=== PATIENT | female | born 1945 | race Caucasian/White ===

== ENCOUNTER 2017-11-18 19:19 | Emergency (ER) | payer MEDICARE, OTHER ==
[~2017-11-18 19:19] MED LIST: Sodium Chloride 0.9% 1,000 ML BAG ONE; Sodium Chloride 0.9% 500 ML BAG ONE
[2017-11-18] MEDS ORDERED: Ondansetron HCl/PF 4 MG/2 ML Vial ONE (20:21)
--- NOTE | 2017-11-18 20:41 | RAD ---
CHEST ONE VIEW ABDOMEN TWO VIEWS 11/18/17 HISTORY: 72-year-old female with abdominal pain. Heart size is within normal limits. There are scattered linear and interstitial and reticulonodular p arenchymal changes noted bilaterally consistent with some stable chronic lung change. No free intrape ritoneal air. There are a few air fluid levels within nondilated large and small bowel, nonspecific. No evidence for overt obstruction. No calculus or free air. IMPRESSION: A few scattered nonspecific air fluid levels in large and small bowel without evidence for overt obst ruction or free air. Stable chronic lung changes. POS: [facility]
[2017-11-18 20:45] LABS: ALT (SGPT) 20 U/L (8-55); AST (SGOT) 19 U/L (5-34); Albumin 3.7 g/dL (3.4-4.8); Alkaline Phosphatase 51 U/L (40-150); Anion Gap 16 mmol/L (10-20); BUN (Urea Nitrogen) 13 mg/dL (9.8-20.1); Bilirubin, Total 0.5 mg/dL (0.2-1.2); Calc. Creatinine Clearance 0 mL/min (70-130); Calcium 8.8 mg/dL (7.8-10.44); Carbon Dioxide 22 mmol/L (23-31); Chloride 106 mmol/L (98-107); Estimated GFR-MDRD Greater than 90; Glucose 130 mg/dL (83-110); Potassium 3.6 mmol/L (3.5-5.1); Protein, Total 6.7 g/dL (6.0-8.3); Sodium 140 mmol/L (136-145)
[2017-11-18 20:51] LABS: Hemoglobin 13.9 g/dL (12.0-16.0); Mean Corpuscular HGB CONC 32.8 g/dL (32.0-36.0); Mean Corpuscular Hemoglobin 31.7 pg (27.0-31.0); Mean Corpuscular Volume 96.6 fl (81.0-99.0); Mean Platelet Volume 6.5 fL (7.4-10.4); Platelet Count 282 thou/uL (130-400); RBC Distribution Width 12.4 % (11.5-14.5); Red Blood Cell (RBC) Count 4.38 mill/uL (4.20-5.40); White Blood Cell (WBC) Count 10.2 thou/uL (4.8-10.8)
[2017-11-18 20:52] LABS: Band 1 % (5-11); Eosinophils 1 % (0-10); Lymphocytes 8 % (21-51); MDiff Complete? YES; Monocytes 2 % (0-10); Neutrophil 88 % (42-75); PLT Morphology Comment Appears Adequate; RBC Morphology Normal
[2017-11-18] MEDS ORDERED: Promethazine HCl 25 MG/ML VIAL ONE (21:23)
[2017-11-18] MEDS ORDERED: metroNIDAZOLE 250 MG TAB ONE (22:08)
== END 2017-11-18 22:13 | disposition home or self-care (01) ==
LOC: MADERS 19:19
DX: E86.0 Dehydration (principal); K52.9 Noninfective gastroenteritis and colitis, unspecified; E03.9 Hypothyroidism, unspecified; Z79.82 Long term (current) use of aspirin; Z79.899 Other long term (current) drug therapy
CPT/HCPCS: 74022; 80053; 82150; 85025; 86140; 96361; 96365; 96375; J2405; J2550; J7050

== ENCOUNTER 2019-04-09 15:19 | Outpatient (CLI) | payer MEDICARE, OTHER ==
--- NOTE | 2019-04-09 15:36 | RAD ---
CHEST PA AND LATERAL VIEWS: HISTORY: Bronchiectasis. COMPARISON: 11/18/2017 FINDINGS: The heart size is normal. The lungs are expanded with chronic parenchymal changes. No lobar consolid ation, pneumothoraces or pleural effusions are seen. There is a questionable 2.5 cm mass in the left infrahilar lung, which was not seen on the previous s tudy. Further evaluation with CT scan is recommended. CODE T POS: [facility]
== END 2019-04-09 15:20 | disposition home or self-care (01) ==
LOC: MADRAD 15:19
PROVIDERS: ATTEND Family Medicine
DX: J47.9 Bronchiectasis, uncomplicated (principal)
CPT/HCPCS: 71046

== ENCOUNTER 2019-04-16 09:45 | Outpatient (CLI) | payer MEDICARE ==
--- NOTE | 2019-04-16 11:22 | CT ---
CT chest with IV contrast HISTORY: Lung mass. Abnormal radiograph. Comparison: 06/06/2015. FINDINGS: Left lung is well inflated with minimal peripheral scarring, most notably at the left anter ior costal cardiac angle. No mass or other abnormality are demonstrated to reliably account for the area of concern on recent radiograph. Parenchymal scarring and retraction at the right anterior lung base and peripheral widespread nodular ity of the right lower lobe are unchanged from the previous exam. The cavitary lesion at the posterior aspect of the superior segment right lower lobe from the previous study has resolved. No ne w parenchymal lung mass. No pleural fluid, mediastinal adenopathy, or pneumothorax. IMPRESSION: Pulmonary hyperinflation, extensive scarring throughout the right lung, and other finding s are stable. No left lung abnormalities are demonstrated. The density on the recent radiograph may be related to parenchymal scarring at the anterior aspect of the left upper lobe. No further follow-u p is needed on the basis of this exam.
== END 2019-04-16 09:46 | disposition home or self-care (01) ==
LOC: MADCT 09:45
PROVIDERS: ATTEND Family Medicine
DX: R91.8 Other nonspecific abnormal finding of lung field (principal); J98.4 Other disorders of lung
CPT/HCPCS: 71260

== ENCOUNTER 2022-10-01 09:26 | Inpatient (IN) | payer MEDICARE ==
[2022-10-01] MEDS ORDERED: GUAIFENESIN SF SOLN 200 MG/10 ML UDCUP PO PRN (16:35)
[2022-10-01] MEDS ORDERED: Cyclobenzaprine 10 MG TAB PO PRN (16:59)
[2022-10-01] MEDS ORDERED: Acetaminophen 500 MG TAB ONE (17:13)
[2022-10-01] MEDS: Acetaminophen 325 MG TAB PO SCH ×2 (17:44→22:59)
[2022-10-01 17:54] VITALS: BMI 19.1
[2022-10-01] MEDS ORDERED: Acetaminophen 325 MG TAB PO SCH (18:00)
[2022-10-01] MEDS: Aspirin 81 mg Enteric Coated Tablet PO SCH (20:00)
[2022-10-01] MEDS: traMADol HCl 50 MG TAB PO PRN (22:58)
[2022-10-02 05:15] LABS: #Basophils 0.1 thou/uL (0.0-0.2); #Eosinphils 0.7 thou/uL (0.0-0.7); #Lymphocytes 1.6 thou/uL (1.20-3.40); #Monocytes 0.6 thou/uL (0.11-0.59); #Neutrophils 4.1 thou/uL (1.40-6.50); %Basophils 1.3 % (0.0-1.0); %Eosinophils 9.6 % (0.0-10.0); %Lymphocytes 22.7 % (21.0-51.0); %Monocytes 7.8 % (0.0-10.0); %Neutrophils 58.5 % (42.0-75.0); Hemoglobin 10.3 g/dL (12.0-16.0); Mean Corpuscular HGB CONC 34.1 g/dL (32.0-36.0); Mean Corpuscular Hemoglobin 31.7 pg (27.0-31.0); Mean Platelet Volume 6.5 fL (7.4-10.4); Platelet Count 306 thou/uL (130-400); RBC Distribution Width 11.5 % (11.5-14.5); Red Blood Cell (RBC) Count 3.24 mill/uL (4.20-5.40)
[2022-10-02] MEDS: Thyroid 30 MG TAB PO SCH (05:29)
[2022-10-02 05:35] LABS: ALT (SGPT) 30 U/L (8-55); AST (SGOT) 59 U/L (5-34); Albumin 2.8 g/dL (3.4-4.8); Alkaline Phosphatase 61 U/L (40-110); Anion Gap 11 mmol/L (10-20); BUN (Urea Nitrogen) 8 mg/dL (9.8-20.1); Bilirubin, Total 0.5 mg/dL (0.2-1.2); Calc. Creatinine Clearance 64 mL/min (70-130); Calcium 8.4 mg/dL (7.8-10.44); Carbon Dioxide 26 mmol/L (23-31); Chloride 106 mmol/L (98-107); Estimated GFR 95; Globulin 2.5 g/dL (2.4-3.5); Glucose 98 mg/dL (83-110); Potassium 4.1 mmol/L (3.5-5.1); Protein, Total 5.3 g/dL (5.8-8.1); Sodium 139 mmol/L (136-145)
[2022-10-02] MEDS: traMADol HCl 50 MG TAB PO PRN ×3 (06:08→23:02)
[2022-10-02] MEDS: Acetaminophen 325 MG TAB PO SCH ×5 (06:10→23:06)
[2022-10-02] MEDS ORDERED: Cholecalciferol 1,000 UNITS (25 MCG) TAB PO SCH (09:00)
[2022-10-02] MEDS: Cyanocobalamin (Vitamin B-12) 1,000 MCG TAB PO SCH (11:33)
[2022-10-02] MEDS: Multivit, Therapeutic 1 TAB PO SCH (11:33)
[2022-10-02] MEDS: CRANBERRY 400 MG PO SCH (11:33)
[2022-10-02] MEDS: Ondansetron ODT 4 MG TAB PO PRN ×2 (12:16→22:55)
[2022-10-02] MEDS: Aspirin 81 mg Enteric Coated Tablet PO SCH ×3 (12:53→21:05)
[2022-10-03] MEDS: Acetaminophen 325 MG TAB PO SCH ×4 (06:31→17:56)
[2022-10-03] MEDS: Thyroid 30 MG TAB PO SCH (06:31)
[2022-10-03] MEDS: Cyanocobalamin (Vitamin B-12) 1,000 MCG TAB PO SCH (08:20)
[2022-10-03] MEDS: Aspirin 81 mg Enteric Coated Tablet PO SCH ×2 (08:21→20:57)
[2022-10-03] MEDS: Multivit, Therapeutic 1 TAB PO SCH (08:21)
[2022-10-03] MEDS: CRANBERRY 400 MG PO SCH (08:23)
[2022-10-03] MEDS: Polyethylene Glycol 3350 17 GM Packet PO PRN (08:34)
[2022-10-03] MEDS: GUAIFENESIN 400 MG PO PRN (17:30)
[2022-10-04] MEDS: traMADol HCl 50 MG TAB PO PRN ×2 (00:17→07:01)
[2022-10-04] MEDS: Acetaminophen 325 MG TAB PO SCH ×5 (00:21→17:23)
[2022-10-04] MEDS: Thyroid 30 MG TAB PO SCH (06:15)
[2022-10-04] MEDS: Aspirin 81 mg Enteric Coated Tablet PO SCH ×2 (08:16→19:57)
[2022-10-04] MEDS: Cyanocobalamin (Vitamin B-12) 1,000 MCG TAB PO SCH (08:16)
[2022-10-04] MEDS: Multivit, Therapeutic 1 TAB PO SCH (08:17)
[2022-10-04] MEDS: PREBIOTIC FIBER PO PRN (08:18)
[2022-10-04] MEDS: Polyethylene Glycol 3350 17 GM Packet PO PRN (17:23)
[2022-10-05] MEDS: Acetaminophen 325 MG TAB PO SCH ×5 (00:46→23:16)
[2022-10-05] MEDS: Thyroid 30 MG TAB PO SCH (05:24)
[2022-10-05] MEDS: Multivit, Therapeutic 1 TAB PO SCH (07:58)
[2022-10-05] MEDS: traMADol HCl 50 MG TAB PO PRN (08:05)
[2022-10-05] MEDS: Aspirin 81 mg Enteric Coated Tablet PO SCH ×2 (08:05→20:42)
[2022-10-05] MEDS: Cyanocobalamin (Vitamin B-12) 1,000 MCG TAB PO SCH (08:06)
[2022-10-05] MEDS: PREBIOTIC FIBER PO PRN (08:07)
[2022-10-06] MEDS: Thyroid 30 MG TAB PO SCH (05:49)
[2022-10-06] MEDS: Acetaminophen 325 MG TAB PO SCH ×3 (05:49→18:30)
[2022-10-06] MEDS: Aspirin 81 mg Enteric Coated Tablet PO SCH ×2 (08:01→20:44)
[2022-10-06] MEDS: traMADol HCl 50 MG TAB PO PRN (08:01)
[2022-10-06] MEDS: Multivit, Therapeutic 1 TAB PO SCH (08:02)
[2022-10-06] MEDS: Cyanocobalamin (Vitamin B-12) 1,000 MCG TAB PO SCH (08:03)
[2022-10-06] MEDS: PREBIOTIC FIBER PO PRN (08:07)
[2022-10-06] MEDS: Polyethylene Glycol 3350 17 GM Packet PO PRN (17:59)
[2022-10-06] MEDS: Ondansetron ODT 4 MG TAB PO PRN (17:59)
[2022-10-06] MEDS ORDERED: Bisacodyl 10 MG SUPP PR PRN (18:06)
[2022-10-06] MEDS ORDERED: Polyethylene Glycol 3350 17 GM Packet PO SCH (18:15)
[2022-10-07] MEDS: Acetaminophen 325 MG TAB PO SCH ×5 (00:39→23:18)
[2022-10-07] MEDS: Thyroid 30 MG TAB PO SCH (05:18)
[2022-10-07] MEDS: traMADol HCl 50 MG TAB PO PRN (06:08)
[2022-10-07] MEDS: Multivit, Therapeutic 1 TAB PO SCH (08:20)
[2022-10-07] MEDS: Aspirin 81 mg Enteric Coated Tablet PO SCH ×2 (08:24→20:27)
[2022-10-07] MEDS: Polyethylene Glycol 3350 17 GM Packet PO SCH (08:24)
[2022-10-07] MEDS: Cyanocobalamin (Vitamin B-12) 1,000 MCG TAB PO SCH (08:24)
[2022-10-07] MEDS: GUAIFENESIN 400 MG PO PRN (15:00)
[2022-10-08] MEDS: traMADol HCl 50 MG TAB PO PRN (05:26)
[2022-10-08] MEDS: Thyroid 30 MG TAB PO SCH (05:26)
[2022-10-08] MEDS: Acetaminophen 325 MG TAB PO SCH ×3 (05:27→18:00)
[2022-10-08] MEDS: Aspirin 81 mg Enteric Coated Tablet PO SCH ×2 (08:06→20:45)
[2022-10-08] MEDS: Polyethylene Glycol 3350 17 GM Packet PO SCH (08:06)
[2022-10-08] MEDS: Multivit, Therapeutic 1 TAB PO SCH (08:06)
[2022-10-08] MEDS: Cyanocobalamin (Vitamin B-12) 1,000 MCG TAB PO SCH (08:06)
[2022-10-09] MEDS: Acetaminophen 325 MG TAB PO SCH ×5 (00:05→17:37)
[2022-10-09] MEDS: Thyroid 30 MG TAB PO SCH (05:42)
[2022-10-09] MEDS: Cyanocobalamin (Vitamin B-12) 1,000 MCG TAB PO SCH (09:06)
[2022-10-09] MEDS: Multivit, Therapeutic 1 TAB PO SCH (09:07)
[2022-10-09] MEDS: Aspirin 81 mg Enteric Coated Tablet PO SCH ×2 (09:07→20:32)
[2022-10-09] MEDS: Polyethylene Glycol 3350 17 GM Packet PO SCH (09:07)
[2022-10-10] MEDS: Acetaminophen 325 MG TAB PO SCH ×7 (00:54→23:52)
[2022-10-10] MEDS: Thyroid 30 MG TAB PO SCH (05:24)
[2022-10-10] MEDS: Multivit, Therapeutic 1 TAB PO SCH (09:33)
[2022-10-10] MEDS: Cyanocobalamin (Vitamin B-12) 1,000 MCG TAB PO SCH (09:33)
[2022-10-10] MEDS: Aspirin 81 mg Enteric Coated Tablet PO SCH ×2 (09:33→20:59)
[2022-10-10] MEDS: Polyethylene Glycol 3350 17 GM Packet PO SCH (09:35)
[2022-10-11] MEDS: Thyroid 30 MG TAB PO SCH (05:30)
[2022-10-11] MEDS: Acetaminophen 325 MG TAB PO SCH ×4 (05:30→23:49)
[2022-10-11] MEDS: traMADol HCl 50 MG TAB PO PRN (05:30)
[2022-10-11] MEDS: Polyethylene Glycol 3350 17 GM Packet PO SCH (09:23)
[2022-10-11] MEDS: Cyanocobalamin (Vitamin B-12) 1,000 MCG TAB PO SCH (09:23)
[2022-10-11] MEDS: Multivit, Therapeutic 1 TAB PO SCH (09:23)
[2022-10-11] MEDS: Aspirin 81 mg Enteric Coated Tablet PO SCH ×2 (09:23→21:13)
[2022-10-12] MEDS: Thyroid 30 MG TAB PO SCH (05:09)
[2022-10-12] MEDS: Acetaminophen 325 MG TAB PO SCH ×4 (05:56→23:06)
[2022-10-12] MEDS: traMADol HCl 50 MG TAB PO PRN (05:57)
[2022-10-12] MEDS: Emollient 15 oz bottle 450 ML, Triamcinolone Acetonide 200 MG TOP SCH ×2 (08:45→20:11)
[2022-10-12] MEDS: Cyanocobalamin (Vitamin B-12) 1,000 MCG TAB PO SCH (08:45)
[2022-10-12] MEDS: Polyethylene Glycol 3350 17 GM Packet PO SCH (08:45)
[2022-10-12] MEDS: Aspirin 81 mg Enteric Coated Tablet PO SCH ×2 (08:45→20:11)
[2022-10-12] MEDS: Multivit, Therapeutic 1 TAB PO SCH (08:45)
[2022-10-13] MEDS: Thyroid 30 MG TAB PO SCH (04:59)
[2022-10-13 05:34] LABS: #Basophils 0.1 thou/uL (0.0-0.2); #Eosinphils 0.7 thou/uL (0.0-0.7); #Lymphocytes 2.1 thou/uL (1.20-3.40); #Monocytes 0.5 thou/uL (0.11-0.59); #Neutrophils 4.4 thou/uL (1.40-6.50); %Basophils 1.5 % (0.0-1.0); %Eosinophils 8.8 % (0.0-10.0); %Lymphocytes 27.1 % (21.0-51.0); %Monocytes 6.3 % (0.0-10.0); %Neutrophils 56.3 % (42.0-75.0); Hemoglobin 12.6 g/dL (12.0-16.0); Mean Corpuscular HGB CONC 33.4 g/dL (32.0-36.0); Mean Corpuscular Hemoglobin 31.8 pg (27.0-31.0); Mean Corpuscular Volume 95.3 fl (78.0-98.0); Mean Platelet Volume 5.7 fL (7.4-10.4); Platelet Count 640 10x3/uL (130-400); RBC Distribution Width 13.3 % (11.5-14.5); Red Blood Cell (RBC) Count 3.95 mill/uL (4.20-5.40); White Blood Cell (WBC) Count 7.8 10x3/uL (4.8-10.8)
[2022-10-13 05:38] LABS: Anion Gap 12 mmol/L (10-20); BUN (Urea Nitrogen) 7 mg/dL (9.8-20.1); Calc. Creatinine Clearance 52 mL/min (70-130); Calcium 9.5 mg/dL (7.8-10.44); Carbon Dioxide 25 mmol/L (23-31); Chloride 106 mmol/L (98-107); Estimated GFR 92; Glucose 95 mg/dL (83-110); Potassium 4.1 mmol/L (3.5-5.1); Sodium 139 mmol/L (136-145)
[2022-10-13] MEDS: Acetaminophen 325 MG TAB PO SCH ×4 (05:53→23:35)
[2022-10-13] MEDS: traMADol HCl 50 MG TAB PO PRN (05:55)
[2022-10-13] MEDS: Aspirin 81 mg Enteric Coated Tablet PO SCH ×2 (08:12→20:43)
[2022-10-13] MEDS: Polyethylene Glycol 3350 17 GM Packet PO SCH (08:13)
[2022-10-13] MEDS: Multivit, Therapeutic 1 TAB PO SCH (08:13)
[2022-10-13] MEDS: Cyanocobalamin (Vitamin B-12) 1,000 MCG TAB PO SCH (08:13)
[2022-10-13] MEDS: Emollient 15 oz bottle 450 ML, Triamcinolone Acetonide 200 MG TOP SCH ×2 (08:13→20:44)
[2022-10-14] MEDS: Thyroid 30 MG TAB PO SCH (05:21)
[2022-10-14] MEDS: Acetaminophen 325 MG TAB PO SCH (05:21)
[2022-10-14 08:24] VITALS: BP 106/66; TEMP 97.1
[2022-10-14] MEDS: Polyethylene Glycol 3350 17 GM Packet PO SCH (08:50)
[2022-10-14] MEDS: Cyanocobalamin (Vitamin B-12) 1,000 MCG TAB PO SCH (08:52)
[2022-10-14] MEDS: Multivit, Therapeutic 1 TAB PO SCH (08:53)
[2022-10-14] MEDS: Aspirin 81 mg Enteric Coated Tablet PO SCH (08:53)
[2022-10-14] MEDS: Emollient 15 oz bottle 450 ML, Triamcinolone Acetonide 200 MG TOP SCH (08:54)
== END 2022-10-14 11:30 | disposition home or self-care (01) | DRG 560 ==
LOC: MADMS 15:28
PROVIDERS: ADMIT Family Medicine; ATTEND Family Medicine
DX: S72.142D Displaced intertrochanteric fracture of left femur, subsequent encounter for closed fracture with routine healing (principal); A31.0 Pulmonary mycobacterial infection; W18.30XD Fall on same level, unspecified, subsequent encounter; Z20.822 Contact with and (suspected) exposure to COVID-19; R53.1 Weakness; K59.00 Constipation, unspecified; E03.9 Hypothyroidism, unspecified; Z79.899 Other long term (current) drug therapy; Z79.890 Hormone replacement therapy; Z79.82 Long term (current) use of aspirin; Z88.1 Allergy status to other antibiotic agents; Z88.8 Allergy status to other drugs, medicaments and biological substances; Z88.2 Allergy status to sulfonamides
CPT/HCPCS: 36415; 80048; 80053; 85025; 87811; J3301; Q0162; U0003; U0005

== ENCOUNTER 2023-04-04 10:33 | Outpatient (CLI) | payer MEDICARE ==
[2023-04-04 10:59] LABS: Bilirubin Negative (Negative); Blood, Urine Negative (Negative); Clarity Clear (Clear); Glucose, Urine (Dipstick) Negative (Negative); Ketone, Urine Negative (Negative); Leukocyte Negative (Negative); Nitrite Negative (Negative); Protein, Urine (Dipstick) Negative (Neg-Trace); Specific Gravity, Urine 1.015 (1.005-1.030); Urobilinogen 0.2 mg/dL (Less than 2); pH, Urine 5.5 (5.0-9.0)
[2023-04-04 11:11] LABS: Bacteria/HPF Rare-Few HPF (None Seen); Mucous/LPF Few LPF (<2+); RBC/HPF None Seen HPF (0-3); Squamous Epithelial 0-3 HPF (0-3); WBC/HPF None Seen HPF (0-3)
== END 2023-04-04 10:34 | disposition home or self-care (01) ==
LOC: MADLAB 10:33
PROVIDERS: ATTEND Internal Medicine
DX: R31.0 Gross hematuria (principal)
CPT/HCPCS: 81001

== ENCOUNTER 2024-12-05 10:37 | Outpatient (CLI) | payer MEDICARE, OTHER | END 2024-12-05 10:38 | disposition home or self-care (01) | LOC: MADLAB 10:37 → MADRAD 10:38 | PROVIDERS: ATTEND Registered Nurse | DX: J18.9 Pneumonia, unspecified organism (principal); R91.1 Solitary pulmonary nodule | CPT/HCPCS: 71046 ==

== ENCOUNTER 2025-09-25 14:37 | Emergency (ER) | payer MEDICARE | END 2025-09-25 15:31 | disposition home or self-care (01) | LOC: MADERS 14:37 | DX: S90.32XA Contusion of left foot, initial encounter (principal); W20.8XXA Other cause of strike by thrown, projected or falling object, initial encounter | CPT/HCPCS: 99283 ==